=== PATIENT | male | born 1980 | race Native Hawaiian/Other Pacific Islander ===

== ENCOUNTER 2017-07-29 14:53 | Emergency (ER) | payer OTHER ==
[2017-07-29 15:03] VITALS: BP 142/98
--- NOTE | 2017-07-29 15:07 | UC ---
FLU HPI - HPI Summary HPI Summary: 37 y/o WM presents with 5 days of productive cough and sinus congestion. He tells me that the cough is worse at night and he is having difficulties getting a good night rest. Has been taking OTC cold and flu medication along with mucinex with no relief. Denies fever, chills, SOB, chest pain, abdominal pain. - History of Current Complaint Chief Complaint: UCRespiratory Stated Complaint: FLU-LIKE SYMPTOMS,COUGH Time Seen by Provider: 07/29/17 15:07 Hx Obtained From: Patient Onset/Duration: Gradual Onset Severity Currently: None Severity Initially: Mild Pain Intensity: 2 Pain Scale Used: 0-10 Numeric - Allergy/Home Medications Allergies/Adverse Reactions: Allergies Allergy/AdvReac Type Severity Reaction Status Date / Time No Known Allergies Allergy Verified 07/29/17 15:03 Home Medications: Home Medications Lisinopril 20 mg PO 07/29/17 [History] PARoxetine HCl [Paroxetine HCl ER] 10 mg PO 07/29/17 [History] PMH/Surg Hx/FS Hx/Imm Hx Previously Healthy: Yes Cardiovascular History: Hypertension Psychological History: Anxiety - Surgical History Surgical History: None - Family History Known Family History: Positive: Hypertension - Social History Occupation: Employed Full-time Lives: With Family Alcohol Use: None Substance Use Type: None Smoking Status (MU): Never Smoked Tobacco Review of Systems Constitutional: Negative Skin: Negative Eyes: Negative ENT: Sinus Congestion Respiratory: Cough Cardiovascular: Negative Gastrointestinal: Negative Musculoskeletal: Negative Neurological: Negative Psychological: Negative All Other Systems Reviewed And Are Negative: Yes Physical Exam - Summary Physical Exam Summary: GENERAL: NAD. WDWN. No pain distress. SKIN: No rashes, sores, ulcers, masses, lesions. HEENT: Head: AT/NC Eyes: Conjunctiva clear without inflammation or discharge. Ears: Hearing grossly normal. TMs intact, no bulging, erythema, or edema. Nose: Nasal mucosa mildly swollen and erythematous with clear discharge. TTP maxillary and frontal sinus. Throat: Posterior oropharynx without exudates, erythema, or tonsillar enlargement. Uvula midline. NECK: Supple. Nontender. No lymphadenopathy. CHEST: CTAB. No r/r/w. No accessory muscle use. Breathing comfortably and in no distress. CV: RRR. Without m/r/g. Pulses intact. Brisk cap refill. NEURO: Alert. CN II-XII grossly intact. PSYCH: Age appropriate behavior. Triage Information Reviewed: Yes Vital Signs: Initial Vital Signs Temp 98.1 F 07/29/17 15:00 Pulse 83 07/29/17 15:00 Resp 18 07/29/17 15:00 BP 142/98 07/29/17 15:00 Pulse Ox 100 07/29/17 15:00 Flu Course/Dx - Course Course Of Treatment: POC flu negative. Sinusitis. Bronchitis - Differential Dx/Diagnosis Provider Diagnoses: Sinusitis. Bronchitis Discharge - Sign-Out/Discharge Documenting (check all that apply): Discharge - Discharge Plan Condition: Stable Disposition: HOME Prescriptions: Azithromycin TAB* [Zithromax TAB (Z-ANKIT) 250 mg #6 tabs] 2 tab PO .TODAY, THEN 1 DAILY #1 ankit Benzonatate CAP* [Tessalon 100 MG CAP*] 100 mg PO TID PRN #15 cap PRN Reason: Cough Codeine Phosphate/Guaifenesin [Guaifen-Codeine 100-10 mg/5 ml] 5 ml PO BEDTIME PRN #35 ml MDD 5mL PRN Reason: Cough Patient Education Materials: Sinusitis (ED), Acute Bronchitis (ED) Referrals: Nathaniel Jo MD [Primary Care Provider] - Additional Instructions: If you develop a fever, shortness of breath, chest pain, new or worsening symptoms - please call your PCP or go to the ED. Your blood pressure was high at todays visit. Please see your primary provider within 4 weeks for recheck and re-evaluation. - Billing Disposition and Condition Condition: STABLE Disposition: HOME
== END 2017-07-29 15:40 | disposition home or self-care (01) ==
LOC: UCEAST 14:53
DX: J32.9 Chronic sinusitis, unspecified (principal); J40 Bronchitis, not specified as acute or chronic; I10 Essential (primary) hypertension; F41.9 Anxiety disorder, unspecified
CPT/HCPCS: 87502; 99212; G0463

== ENCOUNTER 2018-09-05 09:55 | Emergency (ER) | payer OTHER ==
--- OUTSIDE RECORDS SUMMARY | 2018-09-05 10:03 | XMS REPORT | Continuity of Care Document ---
:1980 External Reference #:[id number] Author Name Rosaline Mckeon Care Team Providers Name Role Phone Nathaniel Jo III, MD Primary Care Physician Unavailable Payers Date Identification Numbers Payment Provider Subscriber Policy Number: [id number] Eulogio Salas Group Number: [id number] [address] PayID: [id number] [place] [address] Problems Active Problems Provider Date Essential hypertension Yanelis Spencer NP Onset: 03/23/2017 Anxiety Yanelis Spencer NP Onset: 03/23/2017 Mild depression Yanelis Spencer NP Onset: 03/23/2017 Family History Date Family Member(s) Observation Comments Father DC fatal age 56 Mother Arthritis Hip Replacement, in Rehab Care Home ? 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 ETOH Use Denies alcohol use Tobacco Use Start: Unknown Patient has never smoked Recreational Drug Use Denies Drug Use Smoking Status Reviewed: 09/02/18 Patient has never smoked Exercise Type/Frequency Exercises sporadically Allergies, Adverse Reactions, Alerts Active Allergies Reaction Severity Comments Date Acetaminophen Nausea and Vomiting 03/23/2017 Amlodipine Swelling in bilateral feet 05/11/2017 Medications Active Medications SIG Qnty Indications Ordering Date Provider Guaifenesin-Codeine take 5ml every 118ml J06.9 Isis Gallego MD 09/02/2018 100-10mg/5ML 4 hours as Solution needed Ibuprofen take 1 tablet 30tabs J06.9 Isis Gallego MD 09/02/2018 600mg Tablets by mouth every 6 hours as needed for pain Paroxetine HCL Take 1 Tablet 30tabs F41.9 Nathaniel E. 04/30/2018 20mg Tablets By Mouth Every Dionte Jo Day Hydrochlorothiazide Take 1 Capsule 90caps I10 Nathaniel Haines 12/30/2017 12.5mg By Mouth Every Dionte Jo Capsules Day Lisinopril take 1 tablet 90tabs Isis Gallego MD 04/27/2017 20mg Tablets by mouth every day Multivitamin Men 1 by mouth Unknown Tablets every day History Medications Paroxetine HCL 1 by mouth daily 90tabs F41Leilani Haines 02/10/2018 - 10mg Tablets Dionte Jo 04/30/2018 Clonazepam 1/2 - 1 tab by 20tabs Yadira Hilario 03/23/2017 - 0.5mg Tablets mouth every day YESSY Spencer 12/15/2017 as needed anxiety Paroxetine HCL take 1 tablet by 90tabs F41Leilani Haines 03/23/2017 - 20mg Tablets mouth every day Dionte Jo 02/10/2018 Desvenlafaxine Unknown - Succinate ER 04/26/2017 100mg Tablets ER 24HR Amlodipine Besylate 1 by mouth every Unknown - 10mg day 03/23/2017 Tablets Lisinopril 1 by mouth every 90tabs Yanelis - 10mg Tablets day YESSY Spencer 04/27/2017 Zolpidem Tartrate take 1 tablet by Unknown - 5mg mouth at bedtime 04/26/2017 Tablets as needed -- maximum daily dose of 1 per day Vital Signs Date Vital Result Comment 09/02/2018 4:55pm Height 69 inches 5'9" Weight 233.00 lb Heart Rate 92 /min BP Systolic 144 mmHg BP Diastolic 97 mmHg Body Temperature 99.0 F O2 % BldC Oximetry 97 % BMI (Body Mass Index) 34.4 kg/m2 08/11/2018 4:30pm Height 69 inches 5'9" Weight 232.00 lb Heart Rate 93 /min BP Systolic Sitting 131 mmHg BP Diastolic Sitting 82 mmHg O2 % BldC Oximetry 96 % BMI (Body Mass Index) 34.3 kg/m2 02/10/2018 4:18pm Height 69 inches 5'9" Weight 232.00 lb Heart Rate 93 /min BP Systolic Sitting 132 mmHg BP Diastolic Sitting 94 mmHg O2 % BldC Oximetry 96 % BMI (Body Mass Index) 34.3 kg/m2 12/30/2017 9:56am Weight 226.00 lb Heart Rate 85 /min BP Systolic Sitting 134 mmHg BP Diastolic Sitting 90 mmHg O2 % BldC Oximetry 98 % 12/16/2017 2:05pm Weight 225.00 lb Heart Rate 74 /min BP Systolic Sitting 130 mmHg BP Diastolic Sitting 90 mmHg O2 % BldC Oximetry 98 % 05/11/2017 12:06pm Weight 215.00 lb without shoes Heart Rate 80 /min BP Systolic Sitting 130 mmHg Rue lg cuff BP Diastolic Sitting 94 mmHg Rue lg cuff BP Systolic Standing 138 mmHg Lue lg cuff BP Diastolic Standing 96 mmHg Lue lg cuff BP Systolic Lying Down 148 mmHg Lue lg cuff BP Diastolic Lying Down 100 mmHg Lue lg cuff Respiratory Rate 16 /min Ejection Fraction 50-55% date 05/07/17 ECHO 04/27/2017 12:09pm Weight 215.00 lb Heart Rate 72 /min BP Systolic Sitting 140 mmHg BP Diastolic Sitting 95 mmHg Body Temperature 97.8 F O2 % BldC Oximetry 97 % 03/23/2017 11:52am Weight 221.00 lb Heart Rate 78 /min BP Systolic Sitting 128 mmHg BP Diastolic Sitting 88 mmHg O2 % BldC Oximetry 98 % Results Test Date Facility Test Result H/L Range Note Basic Metabolic 02/13/2018 [facility] Sodium 138 mmol/L N 135- [address] [place] [address] [phone] Chloride 102 mmol/L N 101-111 Co2 Carbon Dioxide 28 mmol/L N 22-32 Glucose 106 mg/dL High 70-100 Blood Urea Nitrogen 13 mg/dL N 6-24 Creatinine 1.06 mg/dL N 0.67-1.17 BUN/Creatinine Ratio 12.3 N 8-20 Calcium 9.6 mg/dL N 8.6-10.3 Egfr Non- 77.8 >60 Egfr 94.1 >60 1 Potassium 5.2 mmol/L High 3.5-5.0 Anion Gap 8 mmol/L N 2-11 Comp Metabolic Panel 12/16/2017 [facility] Sodium 137 mmol/L N 135-145 [address] [place] [address] [phone] Potassium 4.5 mmol/L N 3.5-5.0 Chloride 104 mmol/L N 101-111 Co2 Carbon Dioxide 26 mmol/L N 22-32 Anion Gap 7 mmol/L N 2-11 Glucose 90 mg/dL N 70-100 Blood Urea Nitrogen 16 mg/dL N 6-24 Creatinine 1.06 mg/dL N 0.67-1.17 BUN/Creatinine Ratio 15.1 N 8-20 Calcium 9.4 mg/dL N 8.6-10.3 Total Protein 7.2 g/dL N 6.4-8.9 Albumin 4.7 g/dL N 3.2-5.2 Globulin 2.5 g/dL N 2-4 Albumin/Globulin Ratio 1.9 N 1-3 Total Bilirubin 0.70 mg/dL N 0.2-1.0 Alkaline Phosphatase 50 U/L N 34-104 Alt 47 U/L N 7-52 Ast 23 U/L N 13-39 Egfr Non- 77.8 >60 Egfr 94.1 >60 2 CBC Auto Diff 12/16/2017 [facility] White Blood 6.9 10^3/uL N 3.5-10.[address] [place], [place] [id number] [phone] Red Blood Count 5.15 10^6/uL N 4.00-5.40 Hemoglobin 15.0 g/dL N 14.0-18.0 Hematocrit 44 % N 42-52 Mean Corpuscular Volume 85 fL N 80-94 Mean Corpuscular Hemoglobin 29 pg N 27-31 Mean Corpuscular HGB Conc 34 g/dL N 31-36 Red Cell Distribution Width 13 % N 10.5-15 Platelet Count 242 10^3/uL N 150-450 Mean Platelet Volume 8.7 um3 N 7.4-10.4 Abs Neutrophils 4.0 10^3/uL N 1.5-7.7 Abs Lymphocytes 2.2 10^3/uL N 1.0-4.8 Abs Monocytes 0.6 10^3/uL N 0-0.8 Abs Eosinophils 0.1 10^3/uL N 0-0.6 Abs Basophils 0 10^3/uL N 0-0.2 Abs Nucleated RBC 0 10^3/uL Granulocyte % 57.1 % N 38-83 Lymphocyte % 31.6 % N 25-47 Monocyte % 9.0 % High 0-7 Eosinophil % 1.7 % N 0-6 Basophil % 0.6 % N 0-2 Nucleated Red Blood Cells % 0 Laboratory 12/16/2017 [facility] TSH (Thyroid Stim 1.03 N 0.34 -5.60 test finding [address] [facility] Horm) mcIU/[place] [address] [phone] Lipid Profile 12/16/2017 [facility] Triglycerides 176 mg/dL 3 (Trig/Chol/HDL [address] [facility] [place] [address] [phone] Cholesterol 252 mg/dL 4 HDL Cholesterol 48.8 mg/dL 5 LDL Cholesterol 168 mg/dL 6 Urinalysis Profile 12/16/2017 [facility] Urine Color Yellow [address] [place] [address] [phone] Urine Appearance Clear Urine Specific [place] 1.010 N 1.010-1.030 Urine pH 7.0 N 5-9 Urine Urobilinogen Negative Negative Urine Ketones Negative Negative Urine Protein Negative Negative Urine Leukocytes Negative Negative Urine Blood Negative Negative Urine Nitrite Negative Negative Urine Bilirubin Negative Negative Urine Glucose Negative Negative Rapid Influenza 07/29/2017 [facility] Influenza A NEGATIVE Negative 7 A & B Molecular [address] [facility] [place] [address] [phone] Influenza B Molecular NEGATIVE Negative Lipid Profile 03/23/2017 [facility] Triglycerides 210 mg/dL 8 (Trig/Chol/HDL) [address] [place] [address] [phone] Cholesterol 197 mg/dL 9 HDL Cholesterol 44.5 mg/dL 10 LDL Cholesterol 111 mg/dL 11 Comp Metabolic Panel 03/23/2017 [facility] Sodium 138 mmol/L N 133-[address] [place] [address] [phone] Potassium 4.7 mmol/L N 3.5-5.0 Chloride 103 mmol/L N 101-111 Co2 Carbon Dioxide 28 mmol/L N 22-32 Anion Gap 7 mmol/L N 2-11 Glucose 84 mg/dL N 70-100 Blood Urea Nitrogen 16 mg/dL N 6-24 Creatinine 0.99 mg/dL N 0.67-1.17 BUN/Creatinine Ratio 16.2 N 8-20 Calcium 9.2 mg/dL N 8.6-10.3 Total Protein 7.1 g/dL N 6.4-8.9 Albumin 4.5 g/dL N 3.2-5.2 Globulin 2.6 g/dL N 2-4 Albumin/Globulin Ratio 1.7 N 1-3 Total Bilirubin 0.60 mg/dL N 0.2-1.0 Alkaline Phosphatase 44 U/L N 34-104 Alt 48 U/L N 7-52 Ast 23 U/L N 13-39 Egfr Non- 84.2 >60 Egfr 108.2 >60 12 CBC Auto Diff 03/23/2017 [facility] White Blood 6.8 10^3/uL N 3.5-10.[address] [place] [address] [phone] Red Blood Count 4.94 10^6/uL N 4.0-5.4 Hemoglobin 14.2 g/dL N 14.0-18.0 Hematocrit 42 % N 42-52 Mean Corpuscular Volume 85 fL N 80-94 Mean Corpuscular Hemoglobin 29 pg N 27-31 Mean Corpuscular HGB Conc 34 g/dL N 31-36 Red Cell Distribution Width 13 % N 10.5-15 Platelet Count 225 10^3/uL N 150-450 Mean Platelet Volume 9 um3 N 7.4-10.4 Abs Neutrophils 4.2 10^3/uL N 1.5-7.7 Abs Lymphocytes 1.8 10^3/uL N 1.0-4.8 Abs Monocytes 0.5 10^3/uL N 0-0.8 Abs Eosinophils 0.1 10^3/uL N 0-0.6 Abs Basophils 0 10^3/uL N 0-0.2 Abs Nucleated RBC 0 10^3/uL Granulocyte % 62.5 % N 38-83 Lymphocyte % 27.2 % N 25-47 Monocyte % 7.9 % N 1-9 Eosinophil % 2.2 % N 0-6 Basophil % 0.2 % N 0-2 Nucleated Red Blood Cells % 0.1 1 Because ethnic data is not always readily available, this report includes an eGFR for both -Americans and non- Americans. The National Kidney Disease Education Program (NKDEP) does not endorse the use of the MDRD equation for patients that are not between the ages of 18 and 70, are , have extremes of body size, muscle mass, or nutritional status, or are non- or non-. According to the National Kidney Foundation, irrespective of diagnosis, the stage of the disease is based on the level of kidney function: Stage Description GFR(mL/min/1.73 m(2)) 1 Kidney damage with normal or decreased GFR 90 2 Kidney damage with mild decrease in GFR 60-89 3 Moderate decrease in GFR 30-59 4 Severe decrease in GFR 15-29 5 Kidney failure <15 (or dialysis) 2 Because ethnic data is not always readily available, this report includes an eGFR for both -Americans and non- Americans. The National Kidney Disease Education Program (NKDEP) does not endorse the use of the MDRD equation for patients that are not between the ages of 18 and 70, are , have extremes of body size, muscle mass, or nutritional status, or are non- or non-. According to the National Kidney Foundation, irrespective of diagnosis, the stage of the disease is based on the level of kidney function: Stage Description GFR(mL/min/1.73 m(2)) 1 Kidney damage with normal or decreased GFR 90 2 Kidney damage with mild decrease in GFR 60-89 3 Moderate decrease in GFR 30-59 4 Severe decrease in GFR 15-29 5 Kidney failure <15 (or dialysis) 3 Desirable: <150 Borderline High: 150-199 High: 200-499 Very High: >500 4 Desirable: <200 Borderline High: 200-239 High: >239 5 Low: <40 Desirable: 40-60 High: >60 6 Desirable: <100 Near Optimal: 100-129 Borderline High: 130-159 High: 160-189 Very High: >189 7 Egg Trayer: [id number] Desirable: <150 Borderline High: 150-199 High: 200-499 Very High: >500 9 Desirable: <200 Borderline High: 200-239 High: >239 10 Low: <40 Desirable: 40-60 High: >60 11 Desirable: <100 Near Optimal: 100-129 Borderline High: 130-159 High: 160-189 Very High: >189 12 Because ethnic data is not always readily available, this report includes an eGFR for both -Americans and non- Americans. The National Kidney Disease Education Program (NKDEP) does not endorse the use of the MDRD equation for patients that are not between the ages of 18 and 70, are , have extremes of body size, muscle mass, or nutritional status, or are non- or non-. According to the National Kidney Foundation, irrespective of diagnosis, the stage of the disease is based on the level of kidney function: Stage Description GFR(mL/min/1.73 m(2)) 1 Kidney damage with normal or decreased GFR 90 2 Kidney damage with mild decrease in GFR 60-89 3 Moderate decrease in GFR 30-59 4 Severe decrease in GFR 15-29 5 Kidney failure <15 (or dialysis) Procedures Date Code Description Status 06/11/2017 94711 Stress Test Completed 06/11/2017 35139 Stress Test Completed 05/11/2017 62309 EKG Tracing & Interpretation Completed 05/07/2017 35644 ECHO Transthoracic, Real-Time 2D With Doppler And Color Completed Flow Encounters Type Date Location Provider Dx Diagnosis Office Visit 09/02/2018 [facility] Internal Isis Gallego MD J06.9 Acute upper 4:40p Medicine respiratory infection, unspecified Office Visit 02/10/2018 [facility] Internal Nathaniel Haines I10 Essential (primary) 4:20p Lisa Jo M.D. hypertension Seamus F41.9 Anxiety disorder, unspecified Office Visit 12/30/2017 10:00a [facility] Internal Nathaniel Tarango Essential ( primary) Lisa Jo M.D. hypertension Seamus R35.0 Frequency of micturition E78.00 Pure hypercholesterolemia, unspecified Office Visit 12/16/2017 2:00p [facility] Internal Nathaniel Haines I10 Essential ( primary) Lisa Jo M.D. 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
--- OUTSIDE RECORDS SUMMARY | 2018-09-05 10:03 | XMS REPORT | Continuity of Care Document ---
:1980 External Reference #:[id number] Author Name Nanette Marie Care Team Providers Name Role Phone Nathaniel Jo III, MD Primary Care Physician Unavailable Payers Date Identification Numbers Payment Provider Subscriber Policy Number: [id number] Eulogio Salas Group Number: [id number] [address] PayID: [id number] [place] [address] Advance Directives Description No Information Available Problems Active Problems Provider Date Essential hypertension Yanelis Spencer NP Onset: 03/23/2017 Anxiety Yanelis Spencer NP Onset: 03/23/2017 Mild depression Yanelis Spencer NP Onset: 03/23/2017 Family History Date Family Member(s) Observation Comments Father [place] fatal age 56 Mother Arthritis Hip Replacement, in Rehab [facility] ? 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 ETOH Use Denies alcohol use Tobacco Use Start: Unknown Patient has never smoked Recreational Drug Use Denies Drug Use Smoking Status Reviewed: 08/11/18 Patient has never smoked Exercise Type/Frequency Exercises sporadically Allergies, Adverse Reactions, Alerts Active Allergies Reaction Severity Comments Date Acetaminophen Nausea and Vomiting 03/23/2017 Amlodipine Swelling in bilateral feet 05/11/2017 Medications Active Medications SIG Qnty Indications Ordering Date Provider Paroxetine HCL 1 by mouth 30tabs F41.9 Nathaniel Haines 04/30/2018 20mg Tablets every day Dionte Jo Hydrochlorothiazide Take 1 Capsule 90caps I10 Nathaniel Haines 12/30/2017 12.5mg By Mouth Every Dionte Jo Capsules Day Lisinopril take 1 tablet 90tabs Nathaniel Haines 04/27/2017 20mg Tablets by mouth every iDonte Jo day Multivitamin Men 1 by mouth Unknown Tablets every day History Medications Paroxetine HCL 1 by mouth daily 90tabs Yadira Haines 02/10/2018 - 10mg Tablets Dionte Jo 04/30/2018 Clonazepam 1/2 - 1 tab by 20tabs Yadira Yanelis 03/23/2017 - 0.5mg Tablets mouth every day YESSY Spencer 12/15/2017 as needed anxiety Paroxetine HCL take 1 tablet by 90tabs Yadira Haines 03/23/2017 - 20mg Tablets mouth every [...] maximum daily dose of 1 per day Immunizations Description No Information Available Vital Signs Date Vital Result Comment 08/11/2018 4:30pm Height 69 inches 5'9" Weight [...] Result H/L Range Note Basic Metabolic 02/13/2018 [facility] Sodium 138 mmol/L N 135- 145 Panel [address] [place] [address] [phone] Chloride 102 mmol/L N 101-111 Co2 Carbon Dioxide 28 mmol/L N 22-32 Glucose 106 mg/dL High 70-100 Blood Urea Nitrogen 13 mg/dL N 6-24 Creatinine 1.06 mg/dL N 0.67-1.17 BUN/Creatinine Ratio 12.3 N 8-20 Calcium 9.6 mg/dL N 8.6-10.3 Egfr Non- 77.8 >60 Egfr 94.1 >60 1 Potassium 5.2 mmol/L High 3.5-5.0 Anion Gap 8 mmol/L N 2-11 Comp Metabolic Panel 12/16/2017 [facility] Sodium 137 mmol/L N 135-[address] [place] [address] [phone] Potassium 4.5 mmol/L N 3.5-5.0 Chloride 104 [...] 94.1 >60 2 CBC Auto Diff 12/16/2017 [facility] White Blood 6.9 10^3/uL N 3.5-10.[address] [place] [address] [phone] Red Blood Count 5.15 10^6/uL N 4.00-5.40 [...] Red Blood Cells % 0 Laboratory 12/16/2017 [facility] TSH (Thyroid Stim 1.03 N 0.34 -5.60 test finding [address] Horm) mcIU/mL [place], [place] [id number] [phone] Lipid Profile 12/16/2017 [facility] Triglycerides 176 mg/dL 3 (Trig/Chol/HDL [address] ) [place] [address] [phone] Cholesterol 252 mg/dL 4 HDL Cholesterol 48.8 mg/dL 5 LDL Cholesterol 168 mg/dL 6 Urinalysis Profile 12/16/2017 [facility] Urine Color Yellow [address] [place] [address] [phone] Urine Appearance Clear Urine Specific [place] 1.010 N 1.010-1.030 Urine pH 7.0 N 5-9 Urine Urobilinogen Negative Negative Urine Ketones Negative Negative Urine Protein Negative Negative Urine Leukocytes Negative Negative Urine Blood Negative Negative Urine Nitrite Negative Negative Urine Bilirubin Negative Negative Urine Glucose Negative Negative Rapid Influenza 07/29/2017 [facility] Influenza A NEGATIVE Negative 7 A & B Molecular [address] [facility] [place] [address] [phone] Influenza B Molecular NEGATIVE Negative Lipid Profile 03/23/2017 [facility] Triglycerides 210 mg/dL 8 (Trig/Chol/HDL) [address] [place] [address] [phone] Cholesterol 197 mg/dL 9 HDL Cholesterol 44.5 mg/dL 10 LDL Cholesterol 111 mg/dL 11 Comp Metabolic Panel 03/23/2017 [facility] Sodium 138 mmol/L N 133-145 [address] [place] [address] [phone] Potassium 4.7 mmol/L N 3.5-5.0 Chloride 103 [...] 108.2 >60 12 CBC Auto Diff 03/23/2017 [facility] White Blood 6.8 10^3/uL N 3.5-10.[address] [place] [address] [phone] Red Blood Count 4.94 10^6/uL N 4.0-5.4 [...] 130-159 High: 160-189 Very High: >189 7 Life Science Teacher: [id number] Desirable: <150 Borderline High: 150-199 High: [...] dialysis) Procedures Date Code Description Status 06/11/2017 04281 Stress Test Completed 06/11/2017 87913 Stress Test Completed 05/11/2017 48737 EKG Tracing & Interpretation Completed 05/07/2017 29621 ECHO Transthoracic, Real-Time 2D With Doppler And Color Completed Flow Encounters Type Date Location Provider Dx Diagnosis Office Visit 02/10/2018 [facility] Internal Nathaniel Jo, I10 Essential ( primary) 4:20p Lisa Diaz M.D. hypertension Seamus F41.9 Anxiety disorder, unspecified Office Visit 12/30/2017 10:00a [facility] Internal Nathaniel Tarango Essential ( primary) Lisa Jo M.D. hypertension Seamus R35.0 Frequency of micturition E78.00 Pure hypercholesterolemia, unspecified Office Visit 12/16/2017 2:00p [facility] Internal Nathaniel Tarango Essential ( primary) Lisa Jo M.D. 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
--- OUTSIDE RECORDS SUMMARY | 2018-09-05 10:03 | XMS REPORT | Continuity of Care Document ---
:1980 External Reference #:[id number] Author Name Nanette Marie Care Team Providers Name Role Phone Nathaniel Jo III, MD Primary Care Physician Unavailable Payers Date Identification Numbers Payment Provider Subscriber Policy Number: [id number] Eulogio Salas Group Number: [id number] [address] PayID: [id number] [place] [address] Advance Directives Description No Information Available Problems Active Problems Provider Date Essential hypertension Yanelis Spencer NP Onset: 03/23/2017 Anxiety Yanelis Spencer NP Onset: 03/23/2017 Mild depression Yanelis Spencer NP Onset: 03/23/2017 Family History Date Family Member(s) Observation Comments Father [place] fatal age 56 Mother Arthritis Hip Replacement, in Rehab [facility] ? 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 ETOH Use Denies alcohol [...] Haines 12/30/2017 12.5mg By Mouth Every Dionte oJ Capsules Day Lisinopril take 1 tablet 90tabs Nathaniel Haines 04/27/2017 20mg Tablets by mouth every Dionte Jo day Multivitamin Men 1 by mouth [...] Result H/L Range Note Basic Metabolic 02/13/2018 [facility] Sodium 138 mmol/L N 135- 145 Panel [address] [place] [address] [phone] Chloride 102 mmol/L N 101-111 Co2 Carbon Dioxide 28 mmol/L N 22-32 Glucose 106 mg/dL High 70-100 Blood Urea Nitrogen 13 mg/dL N 6-24 Creatinine 1.06 mg/dL N 0.67-1.17 BUN/Creatinine Ratio 12.3 N 8-20 Calcium 9.6 mg/dL N 8.6-10.3 Egfr Non- 77.8 >60 Egfr 94.1 >60 1 Potassium 5.2 mmol/L High 3.5-5.0 Anion Gap 8 mmol/L N 2-11 Comp Metabolic Panel 12/16/2017 [facility] Sodium 137 mmol/L N 135-[address] [place] [address] [phone] Potassium 4.5 mmol/L N 3.5-5.0 Chloride 104 [...] 94.1 >60 2 CBC Auto Diff 12/16/2017 [facility] White Blood 6.9 10^3/uL N 3.5-10.[address] [place] [address] [phone] Red Blood Count 5.15 10^6/uL N 4.00-5.40 [...] Red Blood Cells % 0 Laboratory 12/16/2017 [facility] TSH (Thyroid Stim 1.03 N 0.34 -5.60 test finding [address] Horm) mcIU/mL [place], [place] [address] [phone] Lipid Profile 12/16/2017 [facility] Triglycerides 176 mg/dL 3 (Trig/Chol/HDL [address] ) [place] [address] [phone] Cholesterol 252 mg/dL 4 HDL Cholesterol 48.8 mg/dL 5 LDL Cholesterol 168 mg/dL 6 Urinalysis Profile 12/16/2017 [facility] Urine Color Yellow [address] [place] [address] [phone] Urine Appearance Clear Urine Specific [place] 1.010 N 1.010-1.030 Urine pH 7.0 N 5-9 Urine Urobilinogen Negative Negative Urine Ketones Negative Negative Urine Protein Negative Negative Urine Leukocytes Negative Negative Urine Blood Negative Negative Urine Nitrite Negative Negative Urine Bilirubin Negative Negative Urine Glucose Negative Negative Rapid Influenza 07/29/2017 [facility] Influenza A NEGATIVE Negative 7 A & B Molecular [address] [facility] [place] [address] [phone] Influenza B Molecular NEGATIVE Negative Lipid Profile 03/23/2017 [facility] Triglycerides 210 mg/dL 8 (Trig/Chol/HDL) [address] [place] [address] [phone] Cholesterol 197 mg/dL 9 HDL Cholesterol 44.5 mg/dL 10 LDL Cholesterol 111 mg/dL 11 Comp Metabolic Panel 03/23/2017 [facility] Sodium 138 mmol/L N 133-145 [address] [place] [address] [phone] Potassium 4.7 mmol/L N 3.5-5.0 Chloride 103 [...] 108.2 >60 12 CBC Auto Diff 03/23/2017 [facility] White Blood 6.8 10^3/uL N 3.5-10.[address] [place] [address] [phone] Red Blood Count 4.94 10^6/uL N 4.0-5.4 [...] 130-159 High: 160-189 Very High: >189 7 Display Director: [id number] Desirable: <150 Borderline High: 150-199 High: [...] dialysis) Procedures Date Code Description Status 06/11/2017 13635 Stress Test Completed 06/11/2017 16762 Stress Test Completed 05/11/2017 66013 EKG Tracing & Interpretation Completed 05/07/2017 84782 ECHO Transthoracic, Real-Time 2D With Doppler And Color Completed Flow Encounters Type Date Location Provider Dx Diagnosis Office Visit 02/10/2018 [facility] [address] Internal Nathaniel Jo, I10 Essential ( primary) 4:20p Lisa Diaz M.D. hypertension Seamus F41.9 Anxiety disorder, unspecified Office Visit 12/30/2017 10:00a [facility] [address] Internal Nathaniel Tarango Essential ( primary) Lisa Jo M.D. hypertension Seamus R35.0 Frequency of micturition E78.00 Pure hypercholesterolemia, unspecified Office Visit 12/16/2017 2:00p [facility] [address] Internal Nathaniel Tarango Essential ( primary) Lisa Jo M.D. hypertension Seamus F41.9 Anxiety disorder, unspecified R35.0 Frequency of micturition R53.83 Other fatigue E78.2 Mixed hyperlipidemia Office Visit 05/11/2017 1:00p [facility] Chris Gonzalez R07.9 Chest pain , Of [facility] [address] DO Anand unspecified FACC I10 Essential (primary) hypertension Office Visit 04/27/2017 11:40a [facility] [address] Internal Medicine Nathaniel Jo, R53.1 Weakness - Seamus Rapp R07.9 Chest pain, unspecified R06.00 Dyspnea, unspecified H53.30 Unspecified disorder of binocular vision I10 Essential (primary) hypertension Office Visit 03/23/2017 11:30a [facility] [address] Internal Yanelis F41.9 Anxiety disorder , Medicine - YESSY Spencer unspecified [address] I10 Essential (primary) hypertension Plan of Treatment 08/11/2018 - Nathaniel Jo M.D.I10 Essential (primary) hypertensionNew Labs: Comp Metabolic Panel, Ordered: 08/11/18F41.9 Anxiety disorder, qupeuziofzyV01.2 Mixed hyperlipidemiaNew Labs:Lipid Profile (Trig/Chol/HDL), Ordered: R68.82 Decreased libidoNew Labs:Testosterone Free & Total, Ordered: Comments:Pt reports past testosterone Rx
[2018-09-05 10:17] VITALS: BP 125/87
[2018-09-05] MEDS ORDERED: Ipratropium 0.5MG/2.5ML NEB* 0.5 MG/2.5 ML NEB.SOLN INH ONE (10:55)
--- NOTE | 2018-09-05 11:02 | UC ---
Respiratory Complaint HPI - HPI Summary HPI Summary: 38 yo male with cough and chest tightness x 10 days sinus pressure and pain as well as post nasal drip he states that the past few days he has had trouble exhaling last night he heard popping sounds in his throat/neck - History of Current Complaint Chief Complaint: UCGeneralIllness Stated Complaint: CONGESTION Time Seen by Provider: 09/05/18 10:48 Hx Obtained From: Patient Onset/Duration: Sudden Onset, Gradual Onset, Lasting Minutes Timing: Constant Severity Initially: Mild Severity Currently: Moderate Pain Intensity: 0 Pain Scale Used: 0-10 Numeric Character: Cough: Productive Aggravating Factors: Nothing Alleviating Factors: Bronchodilator Associated Signs And Symptoms: Positive: Nasal Congestion, Sinus Discomfort - Allergies/Home Medications Allergies/Adverse Reactions: Allergies Allergy/AdvReac Type Severity Reaction Status Date / Time No Known Allergies Allergy Verified 09/05/18 10:17 Home Medications: Home Medications Codeine Phosphate/Guaifenesin [Guaiatussin AC Liquid] 09/05/18 [History] PMH/Surg Hx/FS Hx/Imm Hx Previously Healthy: Yes - Surgical History Surgical History: None - Family History Known Family History: Positive: Hypertension - Social History Alcohol Use: Rare Substance Use Type: None Smoking Status (MU): Never Smoked Tobacco Review of Systems All Other Systems Reviewed And Are Negative: Yes Constitutional: Positive: Fatigue Skin: Positive: Negative Eyes: Positive: Negative ENT: Positive: Nasal Discharge, Sinus Congestion, Sinus Pain/Tenderness Respiratory: Positive: Cough Cardiovascular: Positive: Negative Gastrointestinal: Positive: Negative Genitourinary: Positive: Negative Motor: Positive: Negative Neurovascular: Positive: Negative Musculoskeletal: Positive: Negative Neurological: Positive: Negative Psychological: Positive: Negative Physical Exam Triage Information Reviewed: Yes Appearance: Well-Appearing, No Pain Distress, Well-Nourished Vital Signs: Initial Vital Signs Temp 97.7 F 09/05/18 10:13 Pulse 75 09/05/18 10:13 Resp 16 09/05/18 10:13 BP 125/87 09/05/18 10:13 Pulse Ox 99 09/05/18 10:13 Eyes: Positive: Conjunctiva Clear ENT: Positive: Hearing grossly normal, Pharynx normal, Nasal congestion, TMs normal, Hoarse voice, Uvula midline. Negative: Nasal drainage, Tonsillar swelling, Tonsillar exudate, Trismus, Muffled voice, Dental tenderness, Sinus tenderness Neck: Positive: Supple, Nontender, No Lymphadenopathy Respiratory: Positive: No respiratory distress, No accessory muscle use, Wheezing Cardiovascular: Positive: RRR, No Murmur Musculoskeletal: Positive: ROM Intact, No Edema Neurological: Positive: Alert Psychological Exam: Normal Skin Exam: Normal Diagnostics - Radiology No standard instances Radiology Interpretation Completed By: Radiologist Summary of Radiographic Findings: cxr NAD Re-Evaluation - Re-Evaluation First Eval Re-Evaluation Time: 11:42 Change: Improved - lungs CTA Respiratory Course/Dx - Differential Dx/Diagnosis Provider Diagnosis: Acute bronchitis with bronchospasm Discharge - Sign-Out/Discharge Documenting (check all that apply): Patient Departure All imaging exams completed and their final reports reviewed: Yes - Discharge Plan Condition: Improved Disposition: HOME Patient Education Materials: Acute Bronchitis (ED), How to Use a Metered-Dose Inhaler and a Spacer (ED) Referrals: Nathaniel Jo MD [Primary Care Provider] - - Billing Disposition and Condition Condition: IMPROVED Disposition: Home
[2018-09-05] MEDS: Albuterol 2.5 MG/3 ML NEB.SOL* (0.083%) INH ONE ×2 (11:11→11:12)
[2018-09-05] MEDS ORDERED: predniSONE TAB* 20 MG PO ONE (11:40)
[2018-09-05] MEDS ORDERED: Albuterol HFA INHALER* 8 gm MDI INH ONE (11:40)
== END 2018-09-05 11:50 | disposition home or self-care (01) ==
LOC: UCEAST 09:55
DX: J20.9 Acute bronchitis, unspecified (principal)
CPT/HCPCS: 71046; 99213; A9270-GY; G0463; J7512